=== PATIENT | male | born 1975 | race Two or more races ===

== ENCOUNTER 2019-10-15 05:00 | Emergency (ER) | payer SELFPAY ==
[~2019-10-15] VITALS: Ht 175.3 cm; Wt 83.9 kg
--- NOTE | 2019-10-15 05:24 | NUR ---
[facility] FROM [facility]. TO ER BED 10. AAOX4. NO RESP DISTRESS NOTED. C/O L KNEE WOUND INFECTION. PT REPORTS THAT HIS WOUND ON THE KNEE HAD BEEN GOING ON FOR MONTHS HAVE TAKEN COURSES OF ATB. 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 WOUND IS NOTED 7CM X 3CM X 0.6CM WITH SLOUGH, NO DRAINAGE NOTED. AWAITING MD FOR EVAL.
[2019-10-15] MEDS ORDERED: CLINDAMYCIN 900 MG in IV D5W 50 ML IV ONE (06:30)
[2019-10-15] MEDS ORDERED: CLINDAMYCIN 900 MG/6 ML VIAL ONE (06:35)
[2019-10-15 07:11] LABS: BASOPHILS % (AUTO) 0.8 % (0.0-2.0); EOSINOPHILS % (AUTO) 0.7 % (0.0-6.0); HEMATOCRIT 31 % (39-51); HEMOGLOBIN 10.7 g/dL (13.5-17.5); LYMPHOCYTES # (AUTO) 1.5 /CMM (0.8-4.8); MEAN CORPUSCULAR HGB CONC 34 g/dl (31.0-36.0); MEAN CORPUSCULAR VOLUME 92 fL (80-96); MONOCYTES # (AUTO) 0.5 /CMM (0.1-1.30); MONOCYTES % (AUTO) 10.4 % (2.0-12.0); NEUTROPHILS # (AUTO) 2.4 /CMM (1.8-8.9); NEUTROPHILS % (AUTO) 54.1 % (43.0-81.0); PLATELET COUNT (AUTO) 177 /CMM (150-450); RED BLOOD CELL COUNT(AUTO) 3.43 MIL/uL (4.5-6.0); WHITE BLOOD COUNT (AUTO) 4.4 K/uL (4.3-11.0)
--- NOTE | 2019-10-15 07:28 | NUR ---
pt endorsed to ARLINE Cooper for maryjane
--- NOTE | 2019-10-15 07:30 | NUR ---
REPORT RECEIVED FROM CHAPO NUNN FOR [facility]
[2019-10-15 08:13] LABS: ALBUMIN 3.1 g/dL (3.4-5.0); BILIRUBIN,DIRECT 0.1 mg/dL (0.0-0.2); BILIRUBIN,TOTAL 0.2 mg/dL (0.2-1.0); CREATININE 0.8 mg/dL (0.6-1.3); POTASSIUM 3.7 mmol/L (3.5-5.1); TOTAL PROTEIN, SERUM 7.7 g/dL (6.4-8.2)
[2019-10-15 08:55] VITALS: BP 123/78
--- NOTE | 2019-10-15 08:55 | NUR ---
wound care done
--- NOTE | 2019-10-15 09:11 | NUR ---
IV removed. Catheter intact and site benign. Pressure and 4x4 applied to site. No bleeding noted.Patient given written and verbal discharge instructions. Patient verbalizes understanding of instructions. Patient is ambulatory using crutches. Refuses offer of [facility] placement. Patient given list of available shelters in surrounding area. All belongings returned, discharged in proper clothing. Name band removed.
== END 2019-10-15 09:13 | disposition home or self-care (01) ==
LOC: ER 05:06
DX: L03.116 Cellulitis of left lower limb (principal); Z98.890 Other specified postprocedural states
CPT/HCPCS: 36415; 80048; 80076; 83605; 85025; 85730; 87040 ×2; 96374; 99283; A6403; J3490 ×2; J7060 ×2